=== PATIENT | male | born 1960 | race Caucasian/White ===

== ENCOUNTER 2022-11-30 14:55 | Inpatient (IN) | payer MEDICAID ==
[~2022-11-30] VITALS: Ht 172.7 cm; Wt 69.1 kg
[2022-11-30 16:33] LABS: BASOPHILS # (AUTO) 0.1 X10'3 (0-0.2); BASOPHILS % (AUTO) 0.9 % (0-1); EOSINOPHILS # (AUTO) 0.2 X10'3 (0-0.9); EOSINOPHILS % (AUTO) 2.3 % (0-6); HEMATOCRIT 46.6 % (42.0-52.0); HEMOGLOBIN 15.7 g/dl (14.0-17.9); LYMPHOCYTES # (AUTO) 2.6 X10'3 (1.1-4.8); LYMPHOCYTES % (AUTO) 25.4 % (21-51); MEAN CORPUSCULAR HEMOGLOBIN 31.8 PG (27.0-31.0); MEAN CORPUSCULAR HGB CONC 33.7 g/dL (33.0-36.5); MEAN CORPUSCULAR VOLUME 94.2 FL (78-98); MEAN PLATELET VOLUME 8.8 FL (7.4-10.4); MONOCYTES # (AUTO) 0.8 X10'3 (0-0.9); MONOCYTES % (AUTO) 8.1 % (2-12); NEUTROPHILS # (AUTO) 6.5 X10'3 (1.8-7.7); NEUTROPHILS % (AUTO) 63.3 % (42-75); PLATELET COUNT 295 X10'3 (140-440); RED BLOOD COUNT 4.95 X10'6 (4.70-6.10); RED CELL DISTRIBUTION WIDTH 15.5 % (11.5-14.5); WHITE BLOOD COUNT 10.2 X10'3 (4.5-11.0)
[2022-11-30 16:46] LABS: ALANINE AMINOTRANSFERASE 26 U/L (12-78); ALBUMIN 3.5 G/DL (3.4-5.0); ALBUMIN/GLOBULIN RATIO 0.7 (1.1-1.5); ALKALINE PHOSPHATASE 114 IU/L (46-116); ANION GAP 11 (8-16); ASPARTATE AMINO TRANSFERASE 22 U/L (10-37); BILIRUBIN,TOTAL 0.4 MG/DL (0.1-1.0); BLOOD UREA NITROGEN 19 MG/DL (7-18); BUN/CREATININE RATIO 18.8 (10.0-20.0); C-REACTIVE PROTEIN 6.84 MG/DL (0.0-0.5); CALCIUM 9.3 MG/DL (8.5-10.1); CHLORIDE 101 MMOL/L (99-107); CREATININE 1.01 MG/DL (0.60-1.10); GLUCOSE 100 MG/DL (70-104); MAGNESIUM 2.6 MG/DL (1.5-2.4); POTASSIUM 4.5 MMOL/L (3.5-5.1); SODIUM 136 MMOL/L (135-145); TOTAL CARBON DIOXIDE 24.3 MMOL/L (24-32); TOTAL PROTEIN 8.5 G/DL (6.4-8.2); eGFR 75 ML/MIN
[2022-12-01] MEDS ORDERED: piperacillin/tazo 3.375gm/50ml 50 ML IV ONE (00:25)
[2022-12-01] MEDS ORDERED: vancomycin/NS 1 GM ADD-VANTAGE 250 ML IV ONE (00:25)
[2022-12-01] MEDS ORDERED: magnesium 2GM in 50ml NS 50 ML IV PRN (01:15)
[2022-12-01] MEDS ORDERED: potassium Cl 40MEQ/1/2NS 520ml 520 ML IV PRN (01:15)
[2022-12-01] MEDS ORDERED: ondansetron/PF 4mg/2ml inj IV PRN (01:15)
[2022-12-01] MEDS ORDERED: potassium Cl 20 mEq SR tablet PO PRN ×2 (01:15)
[2022-12-01] MEDS ORDERED: magnesium hydroxide 30ml (MOM) UD suspension PO PRN (01:15)
[2022-12-01] MEDS ORDERED: magnesium 4gm in 100ml NS 100 ML IV PRN (01:15)
[2022-12-01] MEDS ORDERED: magnesium Cl slow-release 64mg tablet PO PRN (01:15)
[2022-12-01] MEDS ORDERED: PERFLUTREN PROTEIN-A MICROSPHR (Optison) 0.22 MG/ML 3ML VIAL IV ONE (01:15)
[2022-12-01] MEDS ORDERED: acetaminophen 325mg tablet PO PRN (01:15)
[2022-12-01 01:50] LABS: CLARITY,URINE CLEAR (Clear); COLOR,URINE YELLOW (Yellow); GLUCOSE, URINE NEGATIVE (Neg); KETONES,URINE TRACE mg/dl (Neg); LEUKOCYTE ESTERASE ,URINE NEGATIVE (Neg); NITRITES, URINE NEGATIVE (Neg); OCCULT BLOOD,URINE NEGATIVE (Neg); PH,URINE 5.5 (4.8-8.0); PROTEIN,URINE NEGATIVE (Neg); UROBILINOGEN,URINE 0.2 E.U/dL (0.2-1.0)
[2022-12-01 01:55] LABS: UA COLLECTION TYPE CLN CATCH MIDSTREAM
[2022-12-01] MEDS: normal saline 1000ml 1,000 ML IV SCH ×2 (02:24→11:15)
[2022-12-01] MEDS: vancomycin/NS 1 GM ADD-VANTAGE 250 ML IV SCH ×2 (02:24→14:43)
[2022-12-01 03:32] LABS: MAGNESIUM 2.5 MG/DL (1.5-2.4); POTASSIUM 4.4 MMOL/L (3.5-5.1)
[2022-12-01] MEDS: mag hydrox/Alum hydrox/simeth 30ml oral suspension PO PRN ×2 (05:05→19:46)
[2022-12-01] MEDS: morphine 2 MG/ML inj. syringe IV PRN ×4 (05:19→21:55)
[2022-12-01] MEDS ORDERED: heparin 10,000 units/1 ML INJ IV ONE (06:00)
[2022-12-01] MEDS ORDERED: heparin 10,000 units/1 ML INJ IV PRN (06:00)
[2022-12-01] MEDS ORDERED: heparin 25,000 UNIT/250ml bag 250 ML IV PRN (06:00)
[2022-12-01] MEDS: docusate sod 100mg capsule PO SCH ×2 (07:04→20:00)
[2022-12-01] MEDS: heparin 25,000 UNIT/250ml bag 250 ML IV PRN (07:25)
[2022-12-01] MEDS: piperacillin/tazo 3.375gm/50ml 50 ML IV SCH ×2 (07:35→16:32)
--- NOTE | 2022-12-01 07:55 | NUR ---
PATIENT TO MRI VIA WHEELCHAIR
[2022-12-01] MEDS: K and/or MAG REPLACEMENT MC SCH ×2 (08:00→20:00)
[2022-12-01] MEDS ORDERED: heparin, porcine 5000 units/ml vial SQ SCH (08:00)
--- NOTE | 2022-12-01 09:39 | NUR ---
DR MOLINA AT BEDSIDE TO EVALUATE PATIENT AT THIS TIME.
[2022-12-01] MEDS ORDERED: iohexol 350 MG/ML 50ML vial IV ONE (10:05)
[2022-12-01] MEDS ORDERED: iohexol 350MG/ML 100ml bottle IV ONE (10:05)
[2022-12-01] MEDS ORDERED: GADOTERATE MEGLUMINE 7.5 MMOL/15 ML VIAL IV ONE (10:29)
[2022-12-01 10:34] LABS: HEMOGLOBIN A1C 5.6 % (4.5-6.2)
--- NOTE | 2022-12-01 11:25 | NUR ---
pt in ER bed 6, recd. report from MIGUEL ÁNGEL Steen, pt will be going to room #1328B until bed is available.
--- NOTE | 2022-12-01 11:30 | NUR ---
pt in room #1328B, VSS, pt is in bed and with call light in reach.
[2022-12-01 11:31] VITALS: BP 131/71
--- NOTE | 2022-12-01 12:15 | NUR ---
pt going to room 347A.
--- NOTE | 2022-12-01 12:30 | NUR ---
Patient report given, questions answered & plan of care reviewed with MIGUEL ÁNGEL Pringle I will be taking pt to room #347A .
--- NOTE | 2022-12-01 12:50 | NUR ---
VSS, pt transferred to room #347A, pt in bed, call light within reach, all pt belongings transferred with pt, MIGUEL ÁNGEL Pringle at pt's bedside and pt is in no distress at this time..
[2022-12-01] MEDS ORDERED: SULF1TAB45 PO (13:29)
[2022-12-01] MEDS ORDERED: OMEP20CA16 PO (13:29)
[2022-12-01] MEDS ORDERED: CILO50TA2 PO (13:29)
[2022-12-01] MEDS ORDERED: LISI5TAB22 PO (13:29)
[2022-12-01] MEDS ORDERED: PER5325T PO (13:29)
[2022-12-01] MEDS ORDERED: ALEN70TA80 PO (13:29)
[2022-12-01] MEDS ORDERED: TIZA-205 PO (13:29)
[2022-12-01] MEDS ORDERED: MELO-102 PO (13:29)
[2022-12-01] MEDS ORDERED: DOXY-224 PO (13:29)
[2022-12-01] MEDS ORDERED: nitroGLYCERIN 0.4mg SUBLingual tab SL PRN (16:50)
[2022-12-01] MEDS ORDERED: metoprolol tartrate 1mg/ml inj IV PRN (16:50)
[2022-12-01] MEDS ORDERED: aminophylline 250mg/10ml inj. IV PRN (16:50)
[2022-12-01] MEDS ORDERED: regadenoson 0.4mg/5ml syringe IV PRN (16:50)
[2022-12-01 18:00] VITALS: BP 119/71
--- NOTE | 2022-12-01 18:55 | NUR ---
Problems reprioritized. Patient report given, questions answered & plan of care reviewed with Anita DEL ROSARIO.
[2022-12-01 21:48] VITALS: BP 111/72
[2022-12-02] VITALS (19 sets, daily range): BP systolic 97–147; BP diastolic 55–86
[2022-12-02] MEDS: piperacillin/tazo 3.375gm/50ml 50 ML IV SCH ×2 (00:28→07:28)
--- NOTE | 2022-12-02 00:34 | NUR ---
Scanned patient's morphine and it did not save. Patient was asking when next dose was available and found that it had not scanned from 2154. Had to put in a manual administration.
[2022-12-02] MEDS: normal saline 1000ml 1,000 ML IV SCH ×3 (00:48→14:25)
[2022-12-02] MEDS: morphine 2 MG/ML inj. syringe IV PRN ×4 (01:35→23:14)
[2022-12-02] MEDS: heparin 25,000 UNIT/250ml bag 250 ML IV PRN (03:31)
[2022-12-02] MEDS: vancomycin/NS 1 GM ADD-VANTAGE 250 ML IV SCH (04:04)
[2022-12-02 05:11] LABS: HEMOGLOBIN 13.7 g/dl (14.0-17.9); MEAN CORPUSCULAR VOLUME 93.9 FL (78-98); MEAN PLATELET VOLUME 8.9 FL (7.4-10.4)
[2022-12-02 05:12] LABS: BASOPHILS # (AUTO) 0.1 X10'3 (0-0.2); BASOPHILS % (AUTO) 0.7 % (0-1); EOSINOPHILS # (AUTO) 0.4 X10'3 (0-0.9); EOSINOPHILS % (AUTO) 4.3 % (0-6); HEMATOCRIT 40.6 % (42.0-52.0); LYMPHOCYTES # (AUTO) 3.6 X10'3 (1.1-4.8); LYMPHOCYTES % (AUTO) 35.2 % (21-51); MEAN CORPUSCULAR HEMOGLOBIN 31.8 PG (27.0-31.0); MEAN CORPUSCULAR HGB CONC 33.8 g/dL (33.0-36.5); MONOCYTES # (AUTO) 0.7 X10'3 (0-0.9); MONOCYTES % (AUTO) 7.2 % (2-12); NEUTROPHILS # (AUTO) 5.4 X10'3 (1.8-7.7); NEUTROPHILS % (AUTO) 52.6 % (42-75); PLATELET COUNT 229 X10'3 (140-440); RED BLOOD COUNT 4.33 X10'6 (4.70-6.10); WHITE BLOOD COUNT 10.3 X10'3 (4.5-11.0)
[2022-12-02 05:31] LABS: ALANINE AMINOTRANSFERASE 19 U/L (12-78); ALBUMIN 2.7 G/DL (3.4-5.0); ALBUMIN/GLOBULIN RATIO 0.7 (1.1-1.5); ALKALINE PHOSPHATASE 87 IU/L (46-116); ANION GAP 8 (8-16); ASPARTATE AMINO TRANSFERASE 13 U/L (10-37); BILIRUBIN,TOTAL 0.3 MG/DL (0.1-1.0); BLOOD UREA NITROGEN 17 MG/DL (7-18); BUN/CREATININE RATIO 23.6 (10.0-20.0); CALCIUM 8.4 MG/DL (8.5-10.1); CHLORIDE 105 MMOL/L (99-107); CREATININE 0.72 MG/DL (0.60-1.10); GLUCOSE 95 MG/DL (70-104); MAGNESIUM 2.5 MG/DL (1.5-2.4); POTASSIUM 4.2 MMOL/L (3.5-5.1); SODIUM 135 MMOL/L (135-145); TOTAL PROTEIN 6.8 G/DL (6.4-8.2); eGFR > 90 ML/MIN
--- NOTE | 2022-12-02 06:50 | NUR ---
Problems reprioritized. Patient report given, questions answered & plan of care reviewed with MIGUEL ÁNGEL PITTMAN.
[2022-12-02] MEDS: K and/or MAG REPLACEMENT MC SCH ×2 (07:35→19:55)
[2022-12-02] MEDS: docusate sod 100mg capsule PO SCH ×2 (07:35→20:17)
[2022-12-02] MEDS ORDERED: morphine 4 MG/ML inj SYRINge ONE (08:45)
[2022-12-02] MEDS ORDERED: morphine 4 MG/ML inj SYRINge IV ONE (08:45)
--- NOTE | 2022-12-02 10:34 | NUR ---
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 Pt w/ no edema/wounds, mild weakness, PO ~88% avg initial heart healthy meals up to 100% dinner last night, and current bed scaled wt appropriate w/ no prior scaled wt hx in EMR. Pt lacks minimum malnutrition criteria at this time. Will monitor for further malnutrition criteria this admit. Addendum: 12/02/22 at [address] Amended: Links added.
[2022-12-02] MEDS ORDERED: tizanidine 4mg tablet PO PRN (11:10)
[2022-12-02] MEDS ORDERED: MELOXICAM 7.5 MG TABLET PO PRN (11:10)
[2022-12-02] MEDS ORDERED: pantoprazole 40mg Tablet.DR PO PRN (11:10)
[2022-12-02] MEDS ORDERED: iohexol 300mg/ml 100ml inj. ONE (12:15)
[2022-12-02] MEDS ORDERED: midazolam 1 mg/ML 2ml injection ONE ×2 (12:41→13:27)
[2022-12-02] MEDS ORDERED: fentaNYL/PF 50MCG/1 ML 2ML syringe ONE ×3 (12:41→14:03)
[2022-12-02] MEDS ORDERED: heparin 1,000 UNITS/NS 500ml 500 ML ONE (12:52)
[2022-12-02] MEDS ORDERED: VANCOMYCIN LEVEL IV ONE (13:30)
--- NOTE | 2022-12-02 15:21 | NUR ---
PAGER ID: [phone] MESSAGE: Alyce NICOLE 347 PT. DONE WITH ANGIOGRAM. DC HEPARIN? ON PLAVIX NOW. TOYA [id number]
--- NOTE | 2022-12-02 15:56 | NUR ---
NO ORDER TO DC HEPARIN. PT BROUGHT UP WITH HEPARIN DC'D. PLAVIX ORDERED. ATTEMPTED TO CALL MD MURRAY PER EXTENSION ANGIO PROVIDED [phone]. NO ANSWER. CALLED HOSPITALIST WHO DID NOT GIVE ANY ORDERS AND SUGGESTED TO CALL BACILIO. CALLED SURGEON, VM FULL. PINMAKER AWARE. STATES TO HOLD BOTH MEDICATIONS UNTIL MD RESPONDS.
--- NOTE | 2022-12-02 16:23 | NUR ---
Pt. to remain laying down until 1830. he is aware
--- NOTE | 2022-12-02 16:24 | NUR ---
Spoke to Dr Theodore patient can have a regular diet. Ok to keep Heparin gtt off for now and hold plavix til Dr Theodore calls back to advise. Will advise primary RN of above information.
--- NOTE | 2022-12-02 16:43 | NUR ---
Dr Sadler called ok to DC heparin gtt. Ok to give plavix now. Patient to be NPO after midnight for possible surgery tomorrow. Dr Sadler will come see patient tonight.
[2022-12-02] MEDS: clopidogrel 75mg tablet PO SCH (17:26)
--- NOTE | 2022-12-02 18:25 | NUR ---
Gave report to Henny DEL ROSARIO.
--- NOTE | 2022-12-02 19:58 | NUR ---
Spoke to Dr. Tsai via telephone regarding pt's pain level. okay to add home dose of perc 5 Q4 hours for mod-severe pain.
[2022-12-02] MEDS: cilostazol 50mg tablet PO SCH (20:12)
[2022-12-02] MEDS: oxyCODONE/APAP 5-325mg tablet PO PRN (20:16)
[2022-12-02] MEDS: mag hydrox/Alum hydrox/simeth 30ml oral suspension PO PRN (22:58)
[2022-12-03] VITALS (21 sets, daily range): BP systolic 84–143; BP diastolic 37–82
[2022-12-03] MEDS: normal saline 1000ml 1,000 ML IV SCH ×2 (02:18→17:05)
[2022-12-03] MEDS: oxyCODONE/APAP 5-325mg tablet PO PRN ×2 (04:03→23:10)
[2022-12-03 06:38] LABS: BASOPHILS # (AUTO) 0.1 X10'3 (0-0.2); BASOPHILS % (AUTO) 1.4 % (0-1); EOSINOPHILS # (AUTO) 0.2 X10'3 (0-0.9); EOSINOPHILS % (AUTO) 2.7 % (0-6); HEMATOCRIT 40.8 % (42.0-52.0); HEMOGLOBIN 13.7 g/dl (14.0-17.9); LYMPHOCYTES % (AUTO) 24.2 % (21-51); MEAN CORPUSCULAR HEMOGLOBIN 31.4 PG (27.0-31.0); MEAN CORPUSCULAR HGB CONC 33.4 g/dL (33.0-36.5); MEAN CORPUSCULAR VOLUME 93.9 FL (78-98); MEAN PLATELET VOLUME 8.5 FL (7.4-10.4); MONOCYTES # (AUTO) 0.6 X10'3 (0-0.9); MONOCYTES % (AUTO) 7.6 % (2-12); NEUTROPHILS # (AUTO) 5.4 X10'3 (1.8-7.7); NEUTROPHILS % (AUTO) 64.1 % (42-75); PLATELET COUNT 225 X10'3 (140-440); RED BLOOD COUNT 4.34 X10'6 (4.70-6.10); RED CELL DISTRIBUTION WIDTH 14.8 % (11.5-14.5); WHITE BLOOD COUNT 8.4 X10'3 (4.5-11.0)
--- NOTE | 2022-12-03 06:42 | NUR ---
PICKED UP FOR OR.
[2022-12-03] MEDS ORDERED: BUPIVAcaine/PF 2.5 mg/ml (0.25%) 30ml vial ONE (06:43)
[2022-12-03] MEDS ORDERED: bacitracin 15gm ointment TP ONE (06:43)
[2022-12-03 07:04] LABS: ALANINE AMINOTRANSFERASE 24 U/L (12-78); ALBUMIN 2.7 G/DL (3.4-5.0); ALBUMIN/GLOBULIN RATIO 0.6 (1.1-1.5); ALKALINE PHOSPHATASE 83 IU/L (46-116); ANION GAP 9 (8-16); ASPARTATE AMINO TRANSFERASE 19 U/L (10-37); BILIRUBIN,TOTAL 0.3 MG/DL (0.1-1.0); BLOOD UREA NITROGEN 14 MG/DL (7-18); BUN/CREATININE RATIO 17.9 (10.0-20.0); CALCIUM 8.5 MG/DL (8.5-10.1); CHLORIDE 104 MMOL/L (99-107); CREATININE 0.78 MG/DL (0.60-1.10); GLUCOSE 95 MG/DL (70-104); MAGNESIUM 2.5 MG/DL (1.5-2.4); POTASSIUM 4.2 MMOL/L (3.5-5.1); SODIUM 137 MMOL/L (135-145); TOTAL CARBON DIOXIDE 24.1 MMOL/L (24-32); TOTAL PROTEIN 6.9 G/DL (6.4-8.2); eGFR > 90 ML/MIN
[2022-12-03] MEDS: lisinopril 5mg tablet PO SCH (07:15)
[2022-12-03] MEDS: K and/or MAG REPLACEMENT MC SCH ×2 (07:15→19:33)
[2022-12-03] MEDS: cilostazol 50mg tablet PO SCH ×2 (07:15→19:46)
[2022-12-03] MEDS: clopidogrel 75mg tablet PO SCH (07:15)
[2022-12-03] MEDS: docusate sod 100mg capsule PO SCH ×2 (07:15→19:46)
[2022-12-03] MEDS ORDERED: LIDOcaine 2% (20mg/ml) 5ml vial ONE (07:17)
[2022-12-03] MEDS ORDERED: BUPIVAcaine/PF 5 mg/ml 10ml ONE (07:17)
[2022-12-03] MEDS ORDERED: MIDAZolam 1 MG/ML 5ML VIAL ONE (07:22)
[2022-12-03] MEDS ORDERED: ketamine 50mg/5ml syringe ONE (07:22)
[2022-12-03] MEDS ORDERED: fentaNYL/PF 50MCG/1 ML 2ML syringe ONE (07:22)
[2022-12-03] MEDS ORDERED: BUPIVAcaine/PF 2.5 mg/ml (0.25%) 30ml vial IJ ONE (07:36)
[2022-12-03] MEDS ORDERED: propofol inj 20 ML IV ONE (07:49)
[2022-12-03] MEDS ORDERED: povidone-iodine 10% ointment 1 APPLIC APPLIC TP ONE (07:54)
--- NOTE | 2022-12-03 08:01 | NUR ---
Received from OR via BED, accompanied by Anesthesiologist DR WELLS and report given by Anesthesiologist AND DIGITAL ART DIRECTOR. PT DROWSY, DENIES PAIN. RIGHT FOOT FROM TIP OF GREATER AND 2ND TOE TO ABOVE ANKLE W/CORWIN WRAP COVERING DRSG CDI, TOES COOL, PINK RAT CULTURIST 3-4 SECONDS. Addendum: 12/03/22 at 0828 by Jolnee Begum RN Amended: Links added.
[2022-12-03] MEDS ORDERED: PCA WASTE DOCUMENTATION 1 MG ML MC SCH (08:02)
[2022-12-03] MEDS ORDERED: bisacodyl 10mg suppository rectal RC PRN (08:05)
[2022-12-03] MEDS ORDERED: acetaminophen 325mg tablet PO PRN (08:05)
[2022-12-03] MEDS ORDERED: magnesium hydroxide 30ml (MOM) UD suspension PO PRN (08:05)
[2022-12-03] MEDS ORDERED: morphine 2 MG/ML inj. syringe IV PRN (08:10)
[2022-12-03] MEDS ORDERED: proCHLORperazine 10 MG/2 ml inj IV PRN (08:10)
[2022-12-03] MEDS ORDERED: meperidine/PF 25mg/ml syringe IV PRN ×3 (08:10)
[2022-12-03] MEDS ORDERED: ringers solution, lacted 1,000 ML IV SCH (08:10)
[2022-12-03] MEDS ORDERED: morphine 4 MG/ML inj SYRINge IV PRN (08:10)
[2022-12-03] MEDS ORDERED: ondansetron/PF 4mg/2ml inj IV PRN (08:10)
--- NOTE | 2022-12-03 09:11 | NUR ---
Report called to receiving nurse. PT REMAINS COMFORTABLE, FIELDS'S X 3, TOLERATING ORAL LIQUIDS. Transferred via BED, NO Belongings. RECEIVING RN AT BEDSIDE TO RECEIVE PT, BLL, CALL LIGHT GIVEN, SIDE RAILS UP X 2. Special Issues communicated to receiving nursing. YES. Addendum: 12/03/22 at 0927 by Jolene Begum RN Amended: Links added.
[2022-12-03 11:00] LABS: HBSAG SCREEN Negative (Negative); HEP B CORE AB, TOT Negative (Negative)
[2022-12-03] MEDS: potassium cl 20mEq in 1/2 NS 1,000 ML IV SCH ×3 (13:00→19:52)
--- NOTE | 2022-12-03 13:35 | NUR ---
[facility] notes, per medical records, this is a 62 year old male who presented to the ED as instructed by Dr. Sadler after an orthopedic follow-up after having left foot surgery including bunion removal. Dr. Sadler was monitoring a wound to right foot and told him to come in due to gangrene. Admit for Ischemic necrosis of toe. Patient scheduled today for amputation of the 5th left toe. Most recent labs WBC 8.4, H &H 13.7 & 40.8, albumin 2.7, BUN 14, and a glucose of 95. Wound care in for skin assessment secondary to nursing consult for left toe and foot wounds. Patient is alert and oriented x3. ID by medical ID. The patient reports he had surgery this am. Matias wrap dressing is in place. There are no wounds to be addressed by [facility] RN. He can move self in bed and appears independent w/ ADLs. Defer care to primary RN.
[2022-12-03] MEDS: mag hydrox/Alum hydrox/simeth 30ml oral suspension PO PRN ×2 (14:48→19:46)
--- NOTE | 2022-12-03 18:17 | NUR ---
Problems reprioritized. Patient report given, questions answered & plan of care reviewed with MIGUEL ÁNGEL Barnett.
[2022-12-03] MEDS: morphine 2 MG/ML inj. syringe IV PRN (19:46)
[2022-12-03] MEDS: sennosides 8.6mg tablet PO SCH (20:31)
[2022-12-04] MEDS: morphine 2 MG/ML inj. syringe IV PRN ×2 (01:46→20:10)
[2022-12-04 02:00] VITALS: BP 142/78
[2022-12-04] MEDS: oxyCODONE/APAP 5-325mg tablet PO PRN ×3 (05:13→23:28)
[2022-12-04] MEDS: normal saline 1000ml 1,000 ML IV SCH ×2 (06:25→19:45)
--- NOTE | 2022-12-04 06:44 | NUR ---
Problems reprioritized. Patient report given, questions answered & plan of care reviewed with TOYA DEL ROSARIO.
[2022-12-04 07:00] VITALS: BP 154/86
[2022-12-04 07:37] LABS: BASOPHILS % (AUTO) 0.5 % (0-1); EOSINOPHILS # (AUTO) 0.3 X10'3 (0-0.9); EOSINOPHILS % (AUTO) 2.9 % (0-6); HEMATOCRIT 40.8 % (42.0-52.0); HEMOGLOBIN 13.7 g/dl (14.0-17.9); LYMPHOCYTES # (AUTO) 1.9 X10'3 (1.1-4.8); LYMPHOCYTES % (AUTO) 22.1 % (21-51); MEAN CORPUSCULAR HEMOGLOBIN 31.7 PG (27.0-31.0); MEAN CORPUSCULAR HGB CONC 33.6 g/dL (33.0-36.5); MEAN CORPUSCULAR VOLUME 94.5 FL (78-98); MEAN PLATELET VOLUME 9.3 FL (7.4-10.4); MONOCYTES # (AUTO) 0.8 X10'3 (0-0.9); MONOCYTES % (AUTO) 9.1 % (2-12); NEUTROPHILS # (AUTO) 5.7 X10'3 (1.8-7.7); NEUTROPHILS % (AUTO) 65.4 % (42-75); PLATELET COUNT 248 X10'3 (140-440); RED BLOOD COUNT 4.31 X10'6 (4.70-6.10); RED CELL DISTRIBUTION WIDTH 14.6 % (11.5-14.5); WHITE BLOOD COUNT 8.8 X10'3 (4.5-11.0)
[2022-12-04] MEDS: K and/or MAG REPLACEMENT MC SCH ×2 (08:00→20:07)
[2022-12-04 08:08] LABS: ALANINE AMINOTRANSFERASE 27 U/L (12-78); ALBUMIN 2.9 G/DL (3.4-5.0); ALBUMIN/GLOBULIN RATIO 0.7 (1.1-1.5); ALKALINE PHOSPHATASE 89 IU/L (46-116); ANION GAP 7 (8-16); ASPARTATE AMINO TRANSFERASE 25 U/L (10-37); BILIRUBIN,TOTAL 0.5 MG/DL (0.1-1.0); BLOOD UREA NITROGEN 7 MG/DL (7-18); CALCIUM 8.7 MG/DL (8.5-10.1); CHLORIDE 103 MMOL/L (99-107); CREATININE 0.78 MG/DL (0.60-1.10); GLUCOSE 94 MG/DL (70-104); MAGNESIUM 2.4 MG/DL (1.5-2.4); POTASSIUM 4.7 MMOL/L (3.5-5.1); SODIUM 137 MMOL/L (135-145); TOTAL CARBON DIOXIDE 26.6 MMOL/L (24-32); TOTAL PROTEIN 7.3 G/DL (6.4-8.2); eGFR > 90 ML/MIN
[2022-12-04] MEDS: potassium cl 20mEq in 1/2 NS 1,000 ML IV SCH (08:24)
[2022-12-04] MEDS: docusate sod 100mg capsule PO SCH (09:51)
[2022-12-04] MEDS: lisinopril 5mg tablet PO SCH (09:52)
[2022-12-04] MEDS: clopidogrel 75mg tablet PO SCH (09:54)
[2022-12-04] MEDS: cilostazol 50mg tablet PO SCH ×2 (09:57→20:10)
[2022-12-04 12:44] VITALS: BP 124/77
--- NOTE | 2022-12-04 12:57 | NUR ---
PAGED P.T. REGAURDING DISCUSSION WITH DR. MAN. NO REPLY YET.
[2022-12-04 18:00] VITALS: BP 143/71
[2022-12-04 18:09] VITALS: BP 143/71
--- NOTE | 2022-12-04 18:16 | NUR ---
Gave report to Prudence MIGUEL ÁNGEL.
--- NOTE | 2022-12-04 18:22 | NUR ---
Patient in room PIRNCE 347. I have received report from TOYA DEL ROSARIO and had the opportunity to ask questions and assume patient care.
[2022-12-04] MEDS: sennosides 8.6mg tablet PO SCH (20:10)
[2022-12-04 22:00] VITALS: BP 133/75
[2022-12-05] MEDS: morphine 2 MG/ML inj. syringe IV PRN ×4 (02:28→22:40)
[2022-12-05] MEDS: normal saline 1000ml 1,000 ML IV SCH ×2 (04:49→14:50)
[2022-12-05] MEDS: oxyCODONE/APAP 5-325mg tablet PO PRN ×3 (05:34→20:09)
--- NOTE | 2022-12-05 06:07 | NUR ---
Problems reprioritized. Patient report given, questions answered & plan of care reviewed with TOYA DEL ROSARIO.
[2022-12-05 06:53] LABS: BASOPHILS # (AUTO) 0.1 X10'3 (0-0.2); BASOPHILS % (AUTO) 1.4 % (0-1); EOSINOPHILS # (AUTO) 0.3 X10'3 (0-0.9); EOSINOPHILS % (AUTO) 3.1 % (0-6); HEMATOCRIT 40.2 % (42.0-52.0); HEMOGLOBIN 13.6 g/dl (14.0-17.9); LYMPHOCYTES # (AUTO) 2.3 X10'3 (1.1-4.8); LYMPHOCYTES % (AUTO) 25.3 % (21-51); MEAN CORPUSCULAR HEMOGLOBIN 31.6 PG (27.0-31.0); MEAN CORPUSCULAR HGB CONC 33.8 g/dL (33.0-36.5); MEAN CORPUSCULAR VOLUME 93.6 FL (78-98); MEAN PLATELET VOLUME 8.7 FL (7.4-10.4); MONOCYTES # (AUTO) 0.6 X10'3 (0-0.9); MONOCYTES % (AUTO) 7.1 % (2-12); NEUTROPHILS # (AUTO) 5.8 X10'3 (1.8-7.7); NEUTROPHILS % (AUTO) 63.1 % (42-75); PLATELET COUNT 267 X10'3 (140-440); RED BLOOD COUNT 4.29 X10'6 (4.70-6.10); RED CELL DISTRIBUTION WIDTH 14.8 % (11.5-14.5); WHITE BLOOD COUNT 9.1 X10'3 (4.5-11.0)
[2022-12-05 07:06] LABS: ALANINE AMINOTRANSFERASE 26 U/L (12-78); ALBUMIN 2.8 G/DL (3.4-5.0); ALBUMIN/GLOBULIN RATIO 0.6 (1.1-1.5); ALKALINE PHOSPHATASE 83 IU/L (46-116); ANION GAP 9 (8-16); ASPARTATE AMINO TRANSFERASE 25 U/L (10-37); BILIRUBIN,TOTAL 0.4 MG/DL (0.1-1.0); BLOOD UREA NITROGEN 8 MG/DL (7-18); BUN/CREATININE RATIO 11.4 (10.0-20.0); CALCIUM 8.8 MG/DL (8.5-10.1); CHLORIDE 103 MMOL/L (99-107); GLUCOSE 105 MG/DL (70-104); MAGNESIUM 2.1 MG/DL (1.5-2.4); POTASSIUM 4.4 MMOL/L (3.5-5.1); SODIUM 136 MMOL/L (135-145); TOTAL CARBON DIOXIDE 24.3 MMOL/L (24-32); TOTAL PROTEIN 7.2 G/DL (6.4-8.2); eGFR > 90 ML/MIN
[2022-12-05] MEDS: K and/or MAG REPLACEMENT MC SCH ×2 (08:00→20:00)
[2022-12-05] MEDS: clopidogrel 75mg tablet PO SCH (09:25)
[2022-12-05] MEDS: cilostazol 50mg tablet PO SCH ×2 (09:25→20:08)
[2022-12-05] MEDS: lisinopril 5mg tablet PO SCH (09:25)
[2022-12-05 10:00] VITALS: BP 118/66
--- NOTE | 2022-12-05 10:17 | NUR ---
HOSPITALIST MADE AWARE OF PTS UNCONTROLLED PAIN IN R FOOT.
[2022-12-05] MEDS: mag hydrox/Alum hydrox/simeth 30ml oral suspension PO PRN (13:28)
--- NOTE | 2022-12-05 18:26 | NUR ---
GAVE REPORT TO SONIA DEL ROSARIO AND SUSAN JOHNSONN
[2022-12-05] MEDS: sennosides 8.6mg tablet PO SCH (20:08)
[2022-12-05 20:50] VITALS: BP 116/67
[2022-12-05 22:57] VITALS: BP 126/74
[2022-12-06] VITALS (22 sets, daily range): BP systolic 101–169; BP diastolic 65–96
[2022-12-06] MEDS: normal saline 1000ml 1,000 ML IV SCH ×2 (02:39→17:08)
[2022-12-06] MEDS: morphine 2 MG/ML inj. syringe IV PRN (04:57)
--- NOTE | 2022-12-06 06:30 | NUR ---
Patient in room [facility]INCE 347. I have received report from Katie AYALA and had the opportunity to ask questions and assume patient care.
--- NOTE | 2022-12-06 06:35 | NUR ---
Problems reprioritized. Patient report given TO REN Aragon, questions answered & plan of care reviewed with .
[2022-12-06 06:44] LABS: BASOPHILS # (AUTO) 0.1 X10'3 (0-0.2); BASOPHILS % (AUTO) 0.6 % (0-1); EOSINOPHILS # (AUTO) 0.3 X10'3 (0-0.9); HEMATOCRIT 37.6 % (42.0-52.0); HEMOGLOBIN 12.6 g/dl (14.0-17.9); LYMPHOCYTES # (AUTO) 2.2 X10'3 (1.1-4.8); LYMPHOCYTES % (AUTO) 25.3 % (21-51); MEAN CORPUSCULAR HEMOGLOBIN 31.2 PG (27.0-31.0); MEAN CORPUSCULAR HGB CONC 33.5 g/dL (33.0-36.5); MEAN CORPUSCULAR VOLUME 93.3 FL (78-98); MEAN PLATELET VOLUME 8.5 FL (7.4-10.4); MONOCYTES # (AUTO) 0.8 X10'3 (0-0.9); MONOCYTES % (AUTO) 9.4 % (2-12); NEUTROPHILS # (AUTO) 5.4 X10'3 (1.8-7.7); NEUTROPHILS % (AUTO) 61.7 % (42-75); PLATELET COUNT 281 X10'3 (140-440); RED BLOOD COUNT 4.03 X10'6 (4.70-6.10); RED CELL DISTRIBUTION WIDTH 14.7 % (11.5-14.5); WHITE BLOOD COUNT 8.7 X10'3 (4.5-11.0)
[2022-12-06 07:03] LABS: ALANINE AMINOTRANSFERASE 24 U/L (12-78); ALBUMIN 2.6 G/DL (3.4-5.0); ALBUMIN/GLOBULIN RATIO 0.6 (1.1-1.5); ALKALINE PHOSPHATASE 75 IU/L (46-116); ANION GAP 10 (8-16); ASPARTATE AMINO TRANSFERASE 18 U/L (10-37); BILIRUBIN,TOTAL 0.3 MG/DL (0.1-1.0); BLOOD UREA NITROGEN 10 MG/DL (7-18); BUN/CREATININE RATIO 13.3 (10.0-20.0); CALCIUM 8.8 MG/DL (8.5-10.1); CHLORIDE 103 MMOL/L (99-107); CREATININE 0.75 MG/DL (0.60-1.10); GLUCOSE 95 MG/DL (70-104); POTASSIUM 4.4 MMOL/L (3.5-5.1); SODIUM 137 MMOL/L (135-145); TOTAL CARBON DIOXIDE 24.4 MMOL/L (24-32); TOTAL PROTEIN 6.9 G/DL (6.4-8.2); eGFR > 90 ML/MIN
--- NOTE | 2022-12-06 07:25 | NUR ---
Call placed to Dr. Sadler, received telephone order to hold scheduled plavix this morning but OK to administer other scheduled meds. Noted and carried out
[2022-12-06] MEDS: clopidogrel 75mg tablet PO SCH (07:27)
[2022-12-06] MEDS: K and/or MAG REPLACEMENT MC SCH ×2 (08:00→20:00)
[2022-12-06] MEDS: cilostazol 50mg tablet PO SCH ×2 (08:01→21:44)
[2022-12-06] MEDS: lisinopril 5mg tablet PO SCH (08:01)
[2022-12-06] MEDS: oxyCODONE/APAP 5-325mg tablet PO PRN ×3 (08:02→22:58)
[2022-12-06] MEDS ORDERED: BUPIVAcaine/PF 2.5mg/ml (0.25%) 10ml vial ONE (12:47)
[2022-12-06] MEDS ORDERED: bacitracin 15gm ointment TP ONE (12:47)
[2022-12-06] MEDS ORDERED: povidone-iodine 10% ointment 1 APPLIC APPLIC TP ONE (12:54)
[2022-12-06] MEDS ORDERED: ceFAZolin 2gm in dextrose, iso 2,000 MG/50 ML BAG IV ONE (13:05)
[2022-12-06] MEDS ORDERED: desflurane 240ml liquid inh. IH ONE (13:05)
[2022-12-06] MEDS ORDERED: dexamethasone sod phosphate 4mg/ml inj. ONE (13:07)
[2022-12-06] MEDS ORDERED: LIDOcaine 2% (20mg/ml) 5ml vial ONE (13:07)
[2022-12-06] MEDS ORDERED: propofol inj 20 ML IV ONE (13:07)
[2022-12-06] MEDS ORDERED: midazolam 1 mg/ML 2ml injection ONE (13:07)
[2022-12-06] MEDS ORDERED: ondansetron/PF 4mg/2ml inj ONE (13:07)
[2022-12-06] MEDS ORDERED: fentaNYL/PF 50MCG/1 ML 2ML syringe ONE ×2 (13:07→13:32)
[2022-12-06] MEDS ORDERED: morphine 2 MG/ML inj. syringe IV PRN (13:35)
[2022-12-06] MEDS ORDERED: ringers solution, lacted 1,000 ML IV SCH (13:35)
[2022-12-06] MEDS ORDERED: labetalol 20mg/4ml (5mg/ml) syringe IV PRN (13:35)
[2022-12-06] MEDS ORDERED: hydrALAZINE 20mg/ml inj. IV PRN (13:35)
[2022-12-06] MEDS ORDERED: ondansetron/PF 4mg/2ml inj IV PRN ×2 (13:35→14:05)
[2022-12-06] MEDS ORDERED: fentaNYL/PF 50MCG/1 ML 2ML syringe IV PRN (13:35)
[2022-12-06] MEDS ORDERED: bisacodyl 10mg suppository rectal RC PRN (14:05)
[2022-12-06] MEDS ORDERED: diphenhydrAMINE 25mg capsule PO PRN ×2 (14:05)
[2022-12-06] MEDS ORDERED: magnesium hydroxide 30ml (MOM) UD suspension PO PRN (14:05)
[2022-12-06] MEDS ORDERED: naloxone 0.4 mg/ml inj IV PRN (14:05)
[2022-12-06] MEDS ORDERED: acetaminophen 325mg tablet PO PRN (14:05)
--- NOTE | 2022-12-06 14:14 | NUR ---
Received from OR via , accompanied by Anesthesiologist ENEDINA AND OR NURSE and report given by Anesthesiolgist. PT IS DROWSY YET REPSONDS TO VERBAL STIMULI. C/O PAIN 05/01 TO RT FOOT. GAUZE AND CORWIN WRAP TO RT FOOT. 20G TO LT LOWER ARM. VSS Addendum: 12/06/22 at 1448 by Sofie Zavala RN Amended: Links added.
[2022-12-06] MEDS: fentaNYL/PF 50MCG/1 ML 2ML syringe IV PRN ×2 (14:31→14:37)
[2022-12-06] MEDS: morphine 4 MG/ML inj SYRINge IV PRN ×2 (14:53→15:05)
--- NOTE | 2022-12-06 15:31 | NUR ---
Received report from Valarie DEL ROSARIO in recovery, awaiting patient arrival to floor
--- NOTE | 2022-12-06 15:34 | NUR ---
PATIENT HAS MET ALL CRITERIA FOR TRANSFER TO THE SURGICAL FLOOR. VSS. DRESSINGS INTACT. BED LOW, CALL LIGHT PRESENT AND 2 RAILS UP. RN PRESENT TO ACCEPT CARE OF PATIENT AND REPORT HAS BEEN CALLED. ALL QUESTIONS ANSWERED TO ACCEPTING RN. Addendum: 12/06/22 at 1542 by Sofie Zavala RN Amended: Links added.
--- NOTE | 2022-12-06 18:13 | NUR ---
Call placed to Dr. Sadler to notify of pulse sustaining 99-[address] Sadler directed me to hospitalist, no new orders at this time. Page sent PAGER ID: [phone] MESSAGE: Michael Vazquez: Pt HR sustaining 99-105 since recovery room. Please call regarding this TY Karon Cristina Addendum: 12/06/22 at [address] LV[address] Espinal called and ordered normal saline to increase from 75ml to 125ml. Noted and carried out
--- NOTE | 2022-12-06 18:24 | NUR ---
Problems reprioritized. Patient report given, questions answered & plan of care reviewed with López DEL ROSARIO.
--- NOTE | 2022-12-06 18:25 | NUR ---
I have reviewed all interventions, assessments, and documentation by Karon Goldsmith LVN.
[2022-12-06] MEDS: mag hydrox/Alum hydrox/simeth 30ml oral suspension PO PRN (19:46)
[2022-12-06] MEDS: sennosides 8.6mg tablet PO SCH (21:00)
[2022-12-07] MEDS: morphine 2 MG/ML inj. syringe IV PRN ×4 (04:09→21:15)
[2022-12-07 05:09] LABS: BASOPHILS # (AUTO) 0.1 X10'3 (0-0.2); BASOPHILS % (AUTO) 0.4 % (0-1); EOSINOPHILS % (AUTO) 0 % (0-6); HEMATOCRIT 36.3 % (42.0-52.0); HEMOGLOBIN 12.3 g/dl (14.0-17.9); LYMPHOCYTES # (AUTO) 1.1 X10'3 (1.1-4.8); LYMPHOCYTES % (AUTO) 7.8 % (21-51); MEAN CORPUSCULAR HEMOGLOBIN 31.8 PG (27.0-31.0); MEAN CORPUSCULAR HGB CONC 33.8 g/dL (33.0-36.5); MEAN CORPUSCULAR VOLUME 94.3 FL (78-98); MEAN PLATELET VOLUME 8.7 FL (7.4-10.4); MONOCYTES # (AUTO) 0.5 X10'3 (0-0.9); MONOCYTES % (AUTO) 3.5 % (2-12); NEUTROPHILS # (AUTO) 12.5 X10'3 (1.8-7.7); NEUTROPHILS % (AUTO) 88.3 % (42-75); PLATELET COUNT 317 X10'3 (140-440); RED BLOOD COUNT 3.85 X10'6 (4.70-6.10); RED CELL DISTRIBUTION WIDTH 14.8 % (11.5-14.5); WHITE BLOOD COUNT 14.1 X10'3 (4.5-11.0)
[2022-12-07 05:22] LABS: ANION GAP 7 (8-16); CHLORIDE 104 MMOL/L (99-107); POTASSIUM 4.7 MMOL/L (3.5-5.1); SODIUM 134 MMOL/L (135-145); TOTAL CARBON DIOXIDE 23.4 MMOL/L (24-32)
[2022-12-07 06:00] VITALS: BP 121/69
--- NOTE | 2022-12-07 06:30 | NUR ---
Patient in room [facility]INCE 347. I have received report from López DEL ROSARIO and had the opportunity to ask questions and assume patient care.
--- NOTE | 2022-12-07 06:35 | NUR ---
Problems reprioritized. Patient report given, questions answered & plan of care reviewed with REN. Addendum: 12/07/22 at 0636 by Riley Schaeffer RN Amended: Links added.
[2022-12-07] MEDS: K and/or MAG REPLACEMENT MC SCH ×2 (08:00→20:00)
--- NOTE | 2022-12-07 08:29 | NUR ---
PAGER ID: [phone] MESSAGE: Michael Vazquez: Augustinocet 5 not controlling pain, can we try increasing to decrease morphine admin? ROCCO Brantley [phone]
[2022-12-07] MEDS: cilostazol 50mg tablet PO SCH ×2 (08:46→21:12)
[2022-12-07] MEDS: clopidogrel 75mg tablet PO SCH (08:46)
[2022-12-07] MEDS: lisinopril 5mg tablet PO SCH (08:47)
[2022-12-07] MEDS: oxyCODONE/APAP 5-325mg tablet PO PRN ×3 (08:51→22:38)
--- NOTE | 2022-12-07 09:30 | NUR ---
Patient reported, "I have medication in my belonging bag if you wanted to know what Dr. Sadler prescribed me." Patient was agreeable to have medication taken to pharmacy to be stored in safe until DC. Medication taken to pharmacy and counted. Slip placed in patient chart
[2022-12-07 10:00] VITALS: BP 120/72
--- NOTE | 2022-12-07 10:16 | NUR ---
Initial: Pt admit for ischemic necrosis of toe. Pt currently POD #4 s/p fourth and fifth digit amputations and partial fifth ray amputation of right foot and POD #1 s/p right TMA. Diet has fluctuated from NPO, clear liquids, and regular d/t OR, though currently on a regular diet and PO intake has been great throughout LOS documented with mostly 100% PO intake. Estimated nutrient needs will be met if pt with average 80% PO intake on regular diet. [facility] 12/06. No nutrition intervention implemented at this time. Will continue to follow. Recommendations: 1) Continue regular diet 2) Monitor need for ONS/additional protein 3) Routine bowel care 4) Weekly scaled weights Addendum: 12/07/22 at [address] Amended: Links added.
[2022-12-07] MEDS: normal saline 1000ml 1,000 ML IV SCH ×2 (11:37→19:42)
[2022-12-07 14:20] VITALS: BP 107/64
--- NOTE | 2022-12-07 14:20 | NUR ---
Student RN was rounding and notified nurse that patient reports that he fell. LN in to assess patient, patient noted sitting in chair. No s/sx of distress noted. Patient stated, "I was trying to move to the bed and lost my balance." Bed in lowest position, wheels locked, SR x2. Chair wheels locked. Patient denies injury, denies head trauma, but does report pain to R foot related to surgical pain. Upon assessment there is a small blanchable red freya on patient's right mayer in which he reports "hit against the bed." VS obtained and stable. No changes from baseline, neuros remain intact. No open areas or injury noted. Patient stated that he got himself back into the chair and then notified the student about 5 mins after falling. States that he fell "around 5 mins ago so about 2:15, I didn't want to call for help cause I thought I could do it." Patient denies utilizing FWW and call light. Patient was provided education re call light utilization, patient states understanding. FWW was placed next to patient to be easily accessible, patient was encouraged to utilize this for transfers as well as staff assistance. Patient has a non slip sock on left foot and wound dressing is in place to right foot, unable to put non slip sock on right foot due to dressing. Chair alarm placed for utilization and bed alarm activated- functioning properly. Patient assisted to bed utilizing FWW standby assist. Bed in lowest position and locked. Personal items, fluids, and call light within reach. Will cont to assess for any changes Addendum: 12/07/22 at 1843 by Karon Childs LVN Neuros and physical assessment remain at baseline. No s/p injury noted. Patient is AOx4, bed alarm activated. Patient was encouraged to utilize call light and request assistance as needed. Patient is agreeable Addendum: 12/07/22 at 1850 by Karon Childs LVN Charge and MD were notified at time of event Addendum: 12/07/22 at 1902 by Karon Childs LVN Occurrence report completed
--- NOTE | 2022-12-07 14:57 | NUR ---
PAGER ID: [phone] MESSAGE: [id number]- Michael Costa: Patient reports that he fell at 1415, unwitnessed- this is just reported per patient. Some redness noted to Reyes mayer, no other injury. VS stable. Rell Brantley [phone] Addendum: 12/07/22 at 1841 by Karon Childs LVN No new orders noted at this time, called charge nurse. Charge nurse reported no new orders
[2022-12-07] MEDS: mag hydrox/Alum hydrox/simeth 30ml oral suspension PO PRN (17:52)
[2022-12-07 18:00] VITALS: BP 137/87
--- NOTE | 2022-12-07 18:26 | NUR ---
Problems reprioritized. Patient report given, questions answered & plan of care reviewed with Cruz DEL ROSARIO.
[2022-12-07 19:00] VITALS: BP 137/76
[2022-12-07 20:00] LABS: BASOPHILS # (AUTO) 0.1 X10'3 (0-0.2); BASOPHILS % (AUTO) 0.4 % (0-1); EOSINOPHILS % (AUTO) 0.1 % (0-6); HEMATOCRIT 36.3 % (42.0-52.0); HEMOGLOBIN 12.1 g/dl (14.0-17.9); LYMPHOCYTES # (AUTO) 1.6 X10'3 (1.1-4.8); LYMPHOCYTES % (AUTO) 9.4 % (21-51); MEAN CORPUSCULAR HEMOGLOBIN 31.3 PG (27.0-31.0); MEAN CORPUSCULAR HGB CONC 33.4 g/dL (33.0-36.5); MEAN CORPUSCULAR VOLUME 93.8 FL (78-98); MEAN PLATELET VOLUME 8.7 FL (7.4-10.4); MONOCYTES # (AUTO) 0.8 X10'3 (0-0.9); MONOCYTES % (AUTO) 4.8 % (2-12); NEUTROPHILS # (AUTO) 14.2 X10'3 (1.8-7.7); NEUTROPHILS % (AUTO) 85.3 % (42-75); PLATELET COUNT 319 X10'3 (140-440); RED BLOOD COUNT 3.87 X10'6 (4.70-6.10); RED CELL DISTRIBUTION WIDTH 14.9 % (11.5-14.5); WHITE BLOOD COUNT 16.6 X10'3 (4.5-11.0)
[2022-12-07 20:12] LABS: ALANINE AMINOTRANSFERASE 34 U/L (12-78); ALBUMIN 2.7 G/DL (3.4-5.0); ALBUMIN/GLOBULIN RATIO 0.6 (1.1-1.5); ALKALINE PHOSPHATASE 77 IU/L (46-116); ANION GAP 9 (8-16); ASPARTATE AMINO TRANSFERASE 24 U/L (10-37); BILIRUBIN,TOTAL 0.1 MG/DL (0.1-1.0); BLOOD UREA NITROGEN 20 MG/DL (7-18); BUN/CREATININE RATIO 24.7 (10.0-20.0); CALCIUM 8.6 MG/DL (8.5-10.1); CHLORIDE 102 MMOL/L (99-107); CREATININE 0.81 MG/DL (0.60-1.10); GLUCOSE 138 MG/DL (70-104); POTASSIUM 4.4 MMOL/L (3.5-5.1); SODIUM 135 MMOL/L (135-145); TOTAL CARBON DIOXIDE 23.8 MMOL/L (24-32); TOTAL PROTEIN 7.1 G/DL (6.4-8.2); eGFR > 90 ML/MIN
[2022-12-07] MEDS: sennosides 8.6mg tablet PO SCH (21:12)
[2022-12-07 22:00] VITALS: BP 140/79
[2022-12-08] MEDS: normal saline 1000ml 1,000 ML IV SCH ×3 (01:05→12:16)
[2022-12-08] MEDS: oxyCODONE/APAP 5-325mg tablet PO PRN ×4 (03:01→20:59)
[2022-12-08 04:54] LABS: MEAN CORPUSCULAR VOLUME 94.1 FL (78-98)
[2022-12-08 04:57] LABS: BASOPHILS % (AUTO) 0.1 % (0-1); EOSINOPHILS % (AUTO) 0.3 % (0-6); HEMATOCRIT 33.5 % (42.0-52.0); HEMOGLOBIN 11.1 g/dl (14.0-17.9); LYMPHOCYTES # (AUTO) 2.5 X10'3 (1.1-4.8); LYMPHOCYTES % (AUTO) 17.3 % (21-51); MEAN CORPUSCULAR HEMOGLOBIN 31.3 PG (27.0-31.0); MEAN CORPUSCULAR HGB CONC 33.3 g/dL (33.0-36.5); MEAN PLATELET VOLUME 8.6 FL (7.4-10.4); MONOCYTES # (AUTO) 1.5 X10'3 (0-0.9); NEUTROPHILS # (AUTO) 10.6 X10'3 (1.8-7.7); NEUTROPHILS % (AUTO) 72.3 % (42-75); PLATELET COUNT 294 X10'3 (140-440); RED BLOOD COUNT 3.56 X10'6 (4.70-6.10); RED CELL DISTRIBUTION WIDTH 14.9 % (11.5-14.5); WHITE BLOOD COUNT 14.7 X10'3 (4.5-11.0)
--- NOTE | 2022-12-08 06:41 | NUR ---
Problems reprioritized. Patient report given, questions answered & plan of care reviewed with MIGUEL ÁNGEL Bridges.
[2022-12-08 07:10] VITALS: BP 137/81
[2022-12-08] MEDS: lisinopril 5mg tablet PO SCH (07:17)
[2022-12-08] MEDS: clopidogrel 75mg tablet PO SCH (07:21)
[2022-12-08] MEDS: cilostazol 50mg tablet PO SCH ×2 (08:00→20:59)
[2022-12-08] MEDS: K and/or MAG REPLACEMENT MC SCH ×2 (08:00→20:00)
[2022-12-08] MEDS: mag hydrox/Alum hydrox/simeth 30ml oral suspension PO PRN (10:35)
[2022-12-08] MEDS: morphine 2 MG/ML inj. syringe IV PRN (10:35)
[2022-12-08 11:49] VITALS: BP 142/77
[2022-12-08] MEDS ORDERED: CLOP75TA34 PO (13:15)
[2022-12-08] MEDS ORDERED: OMEP20CA16 PO (13:17)
[2022-12-08] MEDS ORDERED: DOXY-243 PO (13:17)
--- NOTE | 2022-12-08 14:23 | NUR ---
Page sent to SergeMD: 347A Igor, H: Dr Sadler placed a new order for Webril. was told to ask you guys for it! thanks, marcus :)
[2022-12-08 18:00] VITALS: BP 125/77
--- NOTE | 2022-12-08 18:10 | NUR ---
Problems reprioritized. Patient report given, questions answered & plan of care reviewed with MIGUEL ÁNGEL Garcia.
--- NOTE | 2022-12-08 18:25 | NUR ---
Patient in room [facility]INCE 347. I have received report from MIGUEL ÁNGEL Bridges and had the opportunity to ask questions and assume patient care.
[2022-12-08] MEDS: sennosides 8.6mg tablet PO SCH (20:59)
[2022-12-08 22:00] VITALS: BP 132/74
[2022-12-09] MEDS: oxyCODONE/APAP 5-325mg tablet PO PRN ×2 (01:02→10:35)
[2022-12-09 05:04] LABS: BASOPHILS # (AUTO) 0.1 X10'3 (0-0.2); BASOPHILS % (AUTO) 0.8 % (0-1); EOSINOPHILS # (AUTO) 0.3 X10'3 (0-0.9); EOSINOPHILS % (AUTO) 2.3 % (0-6); HEMATOCRIT 36.6 % (42.0-52.0); HEMOGLOBIN 12.2 g/dl (14.0-17.9); LYMPHOCYTES # (AUTO) 4.4 X10'3 (1.1-4.8); LYMPHOCYTES % (AUTO) 35.9 % (21-51); MEAN CORPUSCULAR HEMOGLOBIN 31.2 PG (27.0-31.0); MEAN CORPUSCULAR HGB CONC 33.3 g/dL (33.0-36.5); MEAN CORPUSCULAR VOLUME 93.7 FL (78-98); MEAN PLATELET VOLUME 8.4 FL (7.4-10.4); MONOCYTES # (AUTO) 1.2 X10'3 (0-0.9); MONOCYTES % (AUTO) 9.7 % (2-12); NEUTROPHILS # (AUTO) 6.3 X10'3 (1.8-7.7); NEUTROPHILS % (AUTO) 51.3 % (42-75); PLATELET COUNT 306 X10'3 (140-440); RED BLOOD COUNT 3.91 X10'6 (4.70-6.10); RED CELL DISTRIBUTION WIDTH 15.3 % (11.5-14.5); WHITE BLOOD COUNT 12.3 X10'3 (4.5-11.0)
[2022-12-09 06:12] VITALS: BP 117/64
--- NOTE | 2022-12-09 06:27 | NUR ---
Problems reprioritized. Patient report given, questions answered & plan of care reviewed with MIGUEL ÁNGEL Bridges.
[2022-12-09] MEDS: normal saline 1000ml 1,000 ML IV SCH ×2 (06:41→09:05)
[2022-12-09] MEDS: clopidogrel 75mg tablet PO SCH (07:17)
[2022-12-09] MEDS: cilostazol 50mg tablet PO SCH (07:17)
[2022-12-09] MEDS: K and/or MAG REPLACEMENT MC SCH (07:17)
[2022-12-09] MEDS: lisinopril 5mg tablet PO SCH (07:17)
--- NOTE | 2022-12-09 07:20 | NUR ---
Page sent to Drillster: 347A Igor, H: Dr Sadler placed a new order for Webril. was told to ask you guys for it! thanks, marcus :)
--- NOTE | 2022-12-09 09:18 | NUR ---
PAGER ID: [phone] MESSAGE: JoseA Daniella NICOLE H: pts ride will be here at 1230. larry, marcus [phone]
--- NOTE | 2022-12-09 09:43 | NUR ---
Prescription called into [facility] in [place], per request. Patients transportation is going to take him to the pharmacy when they get back into town. Addendum: 12/09/22 at 0945 by Yuliana Hampton RN Amended: Links added.
[2022-12-09 10:55] VITALS: BP 122/74
[2022-12-09 11:32] VITALS: BP 122/74
== END 2022-12-09 13:20 | disposition home or self-care (01) | DRG 182 ==
LOC: ER 14:56 → ED HOLD 12-01 01:14 → SUR 3N 12-01 13:00
PROVIDERS: ADMIT Internal Medicine; ATTEND Internal Medicine
PROC: B4201ZZ Computerized Tomography (CT Scan) of Abdominal Aorta using Low Osmolar Contrast (ICD-10-PCS; 2022-12-01)
PROC: B4241ZZ Computerized Tomography (CT Scan) of Superior Mesenteric Artery using Low Osmolar Contrast (ICD-10-PCS; 2022-12-01)
PROC: B4281ZZ Computerized Tomography (CT Scan) of Bilateral Renal Arteries using Low Osmolar Contrast (ICD-10-PCS; 2022-12-01)
PROC: B42C1ZZ Computerized Tomography (CT Scan) of Pelvic Arteries using Low Osmolar Contrast (ICD-10-PCS; 2022-12-01)
PROC: B42H1ZZ Computerized Tomography (CT Scan) of Bilateral Lower Extremity Arteries using Low Osmolar Contrast (ICD-10-PCS; 2022-12-01)
PROC: B4211ZZ Computerized Tomography (CT Scan) of Celiac Artery using Low Osmolar Contrast (ICD-10-PCS; 2022-12-01)
PROC: 047K3Z1 Dilation of Right Femoral Artery using Drug-Coated Balloon, Percutaneous Approach (ICD-10-PCS; principal; 2022-12-02)
PROC: B41F1ZZ Fluoroscopy of Right Lower Extremity Arteries using Low Osmolar Contrast (ICD-10-PCS; 2022-12-02)
PROC: 4A02XM4 Measurement of Cardiac Total Activity, External Approach (ICD-10-PCS; 2022-12-02)
PROC: 3E073KZ Introduction of Other Diagnostic Substance into Coronary Artery, Percutaneous Approach (ICD-10-PCS; 2022-12-02)
PROC: 0Y6V0Z0 Detachment at Right 4th Toe, Complete, Open Approach (ICD-10-PCS; 2022-12-03)
PROC: 0Y6X0Z0 Detachment at Right 5th Toe, Complete, Open Approach (ICD-10-PCS; 2022-12-03)
PROC: 0Y6M0ZF Detachment at Right Foot, Partial 5th Ray, Open Approach (ICD-10-PCS; 2022-12-03)
PROC: 0L8N0ZZ Division of Right Lower Leg Tendon, Open Approach (ICD-10-PCS; 2022-12-06)
PROC: 0Y6P0Z0 Detachment at Right 1st Toe, Complete, Open Approach (ICD-10-PCS; 2022-12-06)
PROC: 0Y6T0Z0 Detachment at Right 3rd Toe, Complete, Open Approach (ICD-10-PCS; 2022-12-06)
PROC: 0Y6R0Z0 Detachment at Right 2nd Toe, Complete, Open Approach (ICD-10-PCS; 2022-12-06)
DX: I70.261 Atherosclerosis of native arteries of extremities with gangrene, right leg (principal); E87.20 Acidosis, unspecified; F17.210 Nicotine dependence, cigarettes, uncomplicated; Z20.822 Contact with and (suspected) exposure to COVID-19; Z60.2 Problems related to living alone; M81.0 Age-related osteoporosis without current pathological fracture; G89.29 Other chronic pain; I70.92 Chronic total occlusion of artery of the extremities; K21.9 Gastro-esophageal reflux disease without esophagitis; M54.9 Dorsalgia, unspecified; I10 Essential (primary) hypertension; J44.9 Chronic obstructive pulmonary disease, unspecified; M06.9 Rheumatoid arthritis, unspecified; Z79.02 Long term (current) use of antithrombotics/antiplatelets; Z82.49 Family history of ischemic heart disease and other diseases of the circulatory system; Z88.5 Allergy status to narcotic agent; Z88.8 Allergy status to other drugs, medicaments and biological substances; Z79.899 Other long term (current) drug therapy; Z71.6 Tobacco abuse counseling
CPT/HCPCS: 36415; 37224; 73630; 73723; 75635; 78452; 80051; 80053; 81003; 82948; 83036; 83605; 83735; 84132; 84145; 85025; 85651; 85730; 86140; 86704; 86705; 86706; 87040; 87081; 87340; 87811; 93017; 93306; 93926; 97116; 97161; 97530; 99152; 99153; 99285; A4421; A4618; A4620; A6196; A6213; A6223; A6253; A6258; A6446; A6449; A7000; A9500; A9575; C1725; C1769; C1887; C1894; C2623; G0378; J0690; J1100; J1644; J2250; J2270; J2405; J2543; J2704; J2785; J3010; J3370; J3480; J3490; J7030; J7060; J7120; Q9967